=== PATIENT | male | born 1955 | race Caucasian/White ===

== ENCOUNTER 2019-11-18 18:59 | Emergency (ER) | payer MEDICAID ==
[~2019-11-18] VITALS: Ht 170.2 cm; Wt 99.8 kg
--- NOTE | 2019-11-18 19:28 | NUR ---
Patient out of unit for ct scan via wheelchair.
[2019-11-18] MEDS ORDERED: ONDANSETRON 4 MG/2 ML VIAL ONE (19:30)
[2019-11-18] MEDS ORDERED: ONDANSETRON 4 MG/2 ML VIAL IV ONE (19:30)
[2019-11-18] MEDS ORDERED: KETOROLAC TROMETHAMINE 30 MG INJ ONE (19:30)
[2019-11-18] MEDS ORDERED: KETOROLAC TROMETHAMINE 30 MG INJ IVP ONE (19:30)
[2019-11-18 19:41] LABS: BASOPHILS # (AUTO) 0.1 K/uL (0.0-8.0); BASOPHILS % (AUTO) 0.7 % (0.0-2.0); EOSINOPHILS # (AUTO) 0.1 K/uL (0.0-0.7); EOSINOPHILS % (AUTO) 0.8 % (0.0-7.0); HEMATOCRIT 44.4 % (36.7-47.1); HEMOGLOBIN 14.6 g/dL (12.5-16.3); LYMPHOCYTES # (AUTO) 3.7 K/uL (20.0-40.0); LYMPHOCYTES % (AUTO) 22.3 % (20.5-51.5); MEAN CORPUSCULAR HEMOGLOBIN 30.3 uug (23.8-33.4); MEAN CORPUSCULAR HGB CONC 33 g/dL (32.5-36.3); MEAN CORPUSCULAR VOLUME 92.3 fL (73.0-96.2); MONOCYTES # (AUTO) 1.6 K/uL (2.0-10.0); MONOCYTES % (AUTO) 9.4 % (0.0-11.0); NEUTROPHILS # (AUTO) 11.2 K/uL (1.8-8.9); NEUTROPHILS % (AUTO) 66.8 % (38.5-71.5); PLATELET COUNT (AUTO) 281 K/uL (152-348); RED BLOOD CELL COUNT(AUTO) 4.81 MIL/uL (4.06-5.63); WHITE BLOOD COUNT (AUTO) 16.8 K/uL (3.6-10.2)
[2019-11-18 19:44] LABS: *BILIRUBIN,URIN NEGATIVE (NEGATIVE); *BLOOD, URINE 2+ (NEGATIVE); *CLARITY,URINE CLOUDY (CLEAR); *COLOR,URINE YELLOW (YELLOW); *KETONES,URINE NEGATIVE (NEGATIVE); *UROBILINOGEN,URINE 0.2 E.U./dl (NORMAL); LEUKOCYTE ESTERASE ,URINE 1+ (NEGATIVE); NITRITE, URINE NEGATIVE (NEGATIVE); UGLUCOSE NEGATIVE (NEGATIVE)
[2019-11-18 19:50] LABS: POTASSIUM 3.5 mmol/L (3.5-5.1)
[2019-11-18 19:56] LABS: BILIRUBIN,DIRECT 0.2 mg/dL (0.0-0.2); BILIRUBIN,TOTAL 0.8 mg/dL (0.2-1.0); TOTAL PROTEIN, SERUM 6.7 g/dL (6.4-8.2)
[2019-11-18 19:56] LABS: BACTERIA,URINE MANY /HPF (NONE SEEN); SQUAMOUS EPITHELIAL CELL,UR FEW /HPF (NONE SEEN); WBC,URINE 50-80 /HPF (0-3)
[2019-11-18] MEDS ORDERED: CEFTRIAXONE 1 G in IV DEXTROSE 5% 50 ML IV ONE (20:15)
[2019-11-18] MEDS ORDERED: CEFTRIAXONE 1 G VIAL ONE (20:23)
--- NOTE | 2019-11-18 23:09 | NUR ---
IV removed. Catheter intact and site benign. Pressure and 4x4 gauze applied to site. No bleeding noted.
[2019-11-18 23:12] VITALS: BP 130/60
== END 2019-11-18 23:21 | disposition home or self-care (01) ==
LOC: ER 18:59
DX: N39.0 Urinary tract infection, site not specified (principal); Z90.49 Acquired absence of other specified parts of digestive tract
CPT/HCPCS: 36415; 74176; 80048; 80076; 81000; 81001; 83690; 85025; 87077; 87086; 87186; 93005; 96365; 96375; 99284; J0696; J1885; J2405; J7060; A4663

== ENCOUNTER 2021-04-18 21:38 | Emergency (ER) | payer MEDICAID ==
[~2021-04-18] VITALS: Ht 170.2 cm; Wt 108.9 kg
--- NOTE | 2021-04-18 21:42 | NUR ---
Dr. Marley at bedside to examine pts. eye.
[2021-04-18] MEDS ORDERED: FLUORESCEIN SODIUM 1 MG STRIP ONE (21:51)
[2021-04-18] MEDS ORDERED: FLUORESCEIN SODIUM 1 MG STRIP OP ONE (22:00)
[2021-04-18] MEDS ORDERED: SULFACETAMIDE SOD 10% OPHT DR 15 ML BOTTLE OP ONE (22:00)
--- NOTE | 2021-04-18 22:05 | NUR ---
Eye patch applied to pt. to wear until pt. can get follow up care for his eye per md Marley. Pt. instructed to not drive.
[2021-04-18] MEDS ORDERED: SULFACETAMIDE SOD 10% OPHT DR 15 ML BOTTLE ONE (22:09)
--- NOTE | 2021-04-18 22:10 | NUR ---
Patient discharged to home in stable condition. Written and verbal after care instructions given. Patient verbalizes understanding of instructions. Stressed follow up or return to ER for worsening s/s. Pt. instructed not to drive. Pt. walked with steady gait. All belongings with pt.
[2021-04-18 22:11] VITALS: BP 121/67
== END 2021-04-18 22:15 | disposition home or self-care (01) ==
LOC: ER 21:41
DX: S05.01XA Injury of conjunctiva and corneal abrasion without foreign body, right eye, initial encounter (principal); X58.XXXA Exposure to other specified factors, initial encounter; Y92.89 Other specified places as the place of occurrence of the external cause
CPT/HCPCS: A4663

== ENCOUNTER 2023-02-17 18:28 | Inpatient (IN) | payer MEDICAID ==
[~2023-02-17] VITALS: Ht 170.2 cm; Wt 99.8 kg
[2023-02-17] MEDS ORDERED: VANCOMYCIN 1G/D5W 200 ML PIGGYBACK IV ONE (19:30)
[2023-02-17 19:44] LABS: HEMATOCRIT 40.5 % (36.7-47.1); MEAN CORPUSCULAR HEMOGLOBIN 30.4 uug (23.8-33.4); MEAN CORPUSCULAR VOLUME 91.3 fL (73.0-96.2); PLATELET COUNT (AUTO) 404 K/uL (152-348)
[2023-02-17] MEDS ORDERED: VANCOMYCIN IV 200 ML ONE (19:53)
[2023-02-17 20:04] LABS: CARBON DIOXIDE 28 mmol/L (21-32); CHLORIDE 104 mmol/L (98-107); GLUCOSE 135 mg/dL (74-106); POTASSIUM 4.1 mmol/L (3.5-5.1); UREA NITROGEN, BLOOD 19 mg/dL (7-18)
[2023-02-17 20:17] LABS: ALANINE AMINOTRANSFERASE 13 U/L (16-63); ALKALINE PHOSPHATASE 101 U/L (50-136); ASPARTATE AMINOTRANSFERASE 5 U/L (15-37); BILIRUBIN,DIRECT 0.1 mg/dL (0.0-0.2); BILIRUBIN,TOTAL 0.3 mg/dL (0.2-1.0); TOTAL PROTEIN, SERUM 6.3 g/dL (6.4-8.2)
[2023-02-17 23:23] VITALS: BP 117/72
[2023-02-18 04:31] VITALS: BP 118/70
[2023-02-18] MEDS ORDERED: MAGNESIUM HYDROXIDE 30 ML LIQUID UDC PO PRN (08:30)
[2023-02-18] MEDS ORDERED: ONDANSETRON 4 MG/2 ML VIAL IV PRN (08:30)
[2023-02-18] MEDS ORDERED: REMEDY ESSENTIAL ZINC PASTE 113 GM TP PRN (08:30)
[2023-02-18] MEDS ORDERED: ACETAMINOPHEN 325 MG TABLET PO PRN (08:30)
[2023-02-18] MEDS ORDERED: HYDROCODONE/APAP 5-325MG TABLET PO PRN (08:30)
[2023-02-18 09:05] LABS: HEMATOCRIT 42.7 % (36.7-47.1); MEAN CORPUSCULAR HEMOGLOBIN 30.7 uug (23.8-33.4); MEAN CORPUSCULAR VOLUME 92.2 fL (73.0-96.2); PLATELET COUNT (AUTO) 381 K/uL (152-348)
[2023-02-18 09:32] LABS: BILIRUBIN,TOTAL 0.5 mg/dL (0.2-1.0); CREATININE 0.9 mg/dL (0.6-1.3); MAGNESIUM 1.9 mg/dL (1.8-2.4); TOTAL PROTEIN, SERUM 6.3 g/dL (6.4-8.2)
[2023-02-18] MEDS: VANCOMYCIN IV 1,500 MG in IV DEXTROSE 5% 500 ML IV SCH (09:53)
[2023-02-18 11:41] VITALS: BP 127/65
[2023-02-18] MEDS: THERAHONEY GEL 1.5 OZ TUBE TOP SCH (14:52)
[2023-02-18 15:09] VITALS: BP 115/57
[2023-02-18 20:00] VITALS: BP 112/60
[2023-02-18 22:00] VITALS: BP 112/60
[2023-02-19 04:00] VITALS: BP 101/62
[2023-02-19] MEDS: PANTOPRAZOLE SODIUM 40 MG TABLET.DR PO SCH (06:36)
[2023-02-19 06:42] LABS: HEMATOCRIT 43.7 % (36.7-47.1); MEAN CORPUSCULAR HEMOGLOBIN 30.9 uug (23.8-33.4); MEAN CORPUSCULAR VOLUME 91.5 fL (73.0-96.2); PLATELET COUNT (AUTO) 393 K/uL (152-348)
[2023-02-19 07:24] LABS: MAGNESIUM 1.9 mg/dL (1.8-2.4); PHOSPHOROUS 2.8 mg/dL (2.5-4.9); POTASSIUM 4.3 mmol/L (3.5-5.1)
[2023-02-19 07:52] VITALS: BP 121/74
[2023-02-19] MEDS: THERAHONEY GEL 1.5 OZ TUBE TOP SCH (08:39)
[2023-02-19 11:47] VITALS: BP 118/64
[2023-02-19] MEDS: VANCOMYCIN IV 1,500 MG in IV DEXTROSE 5% 500 ML IV SCH ×3 (14:57)
[2023-02-19 16:23] VITALS: BP 116/71
[2023-02-19 20:05] VITALS: BP 111/63
[2023-02-20 04:00] VITALS: BP 103/65
[2023-02-20] MEDS: VANCOMYCIN IV 1,500 MG in IV DEXTROSE 5% 500 ML IV SCH (05:05)
[2023-02-20 05:18] LABS: MEAN CORPUSCULAR HEMOGLOBIN 31.3 uug (23.8-33.4); MEAN CORPUSCULAR VOLUME 91.4 fL (73.0-96.2); PLATELET COUNT (AUTO) 377 K/uL (152-348)
[2023-02-20 05:34] LABS: MAGNESIUM 1.9 mg/dL (1.8-2.4); PHOSPHOROUS 2.5 mg/dL (2.5-4.9); POTASSIUM 4.4 mmol/L (3.5-5.1)
[2023-02-20] MEDS: PANTOPRAZOLE SODIUM 40 MG TABLET.DR PO SCH (06:07)
[2023-02-20] MEDS: THERAHONEY GEL 1.5 OZ TUBE TOP SCH (08:21)
[2023-02-20] MEDS ORDERED: CEPH500T PO (11:25)
[2023-02-20 11:44] VITALS: BP 123/78
== END 2023-02-20 12:50 | disposition home or self-care (01) | DRG 720 ==
LOC: ER 18:28 → MEDSURG3 21:43
PROVIDERS: ADMIT Nurse Practitioner Family; ATTEND Nurse Practitioner Family
DX: A41.9 Sepsis, unspecified organism (principal); D69.6 Thrombocytopenia, unspecified; E44.1 Mild protein-calorie malnutrition; L97.318 Non-pressure chronic ulcer of right ankle with other specified severity; I87.333 Chronic venous hypertension (idiopathic) with ulcer and inflammation of bilateral lower extremity; E88.09 Other disorders of plasma-protein metabolism, not elsewhere classified; L03.115 Cellulitis of right lower limb; L03.116 Cellulitis of left lower limb; L97.828 Non-pressure chronic ulcer of other part of left lower leg with other specified severity; D75.838 Other thrombocytosis; F17.210 Nicotine dependence, cigarettes, uncomplicated; Z59.01 Sheltered homelessness; R60.0 Localized edema; Z90.49 Acquired absence of other specified parts of digestive tract; Z87.81 Personal history of (healed) traumatic fracture; Z87.440 Personal history of urinary (tract) infections; S31.109D Unspecified open wound of abdominal wall, unspecified quadrant without penetration into peritoneal cavity, subsequent encounter; X58.XXXD Exposure to other specified factors, subsequent encounter; R79.89 Other specified abnormal findings of blood chemistry; B95.0 Streptococcus, group A, as the cause of diseases classified elsewhere
CPT/HCPCS: 36415; 71045; 83735; 84100; 84484; 85025; 85651; 86140; 86803; 87040; 87806; 93005; A4663; A6209; A6213; G0378; J3370; J7040; J7060

== ENCOUNTER 2024-09-02 23:18 | Emergency (ER) | payer MEDICAID, OTHER ==
[~2024-09-02] VITALS: Ht 170.2 cm; Wt 90.7 kg
[~2024-09-02 23:18] MED LIST: CEPH500T PO
[2024-09-02] MEDS ORDERED: LIDOCAINE 1%-EPI 1:100,000 20 ML VIAL ONE ×2 (23:39→23:45)
[2024-09-02] MEDS ORDERED: SODIUM BICARBONATE 4.2 % (NEUT) 5 ML VIAL ONE (23:44)
[2024-09-02] MEDS ORDERED: ONDANSETRON ODT 4 MG TAB.RAPDIS ONE (23:50)
[2024-09-02] MEDS ORDERED: HYDROCODONE/APAP 10-325 MG TABLET ONE (23:50)
[2024-09-02] MEDS: HYDROCODONE/APAP 10-325 MG TABLET PO ONE (23:56)
[2024-09-02] MEDS: ONDANSETRON ODT 4 MG TAB.RAPDIS SL ONE (23:56)
[2024-09-02] MEDS: SODIUM BICARBONATE 4.2 % (NEUT) 5 ML VIAL TP ONE (23:57)
[2024-09-02] MEDS: LIDOCAINE 1%-EPI 1:100,000 20 ML VIAL IJ ONE (23:57)
[2024-09-03] MEDS ORDERED: HYDR-3980 PO (00:22)
[2024-09-03] MEDS ORDERED: ONDA4TAB11 PO (00:22)
[2024-09-03] MEDS ORDERED: CEPH500T PO (00:22)
[2024-09-03] MEDS ORDERED: LIDOCAINE HCL 1% 20 ML VIAL ONE (00:36)
[2024-09-03] MEDS ORDERED: CEFTRIAXONE 1 G VIAL ONE (00:36)
[2024-09-03] MEDS: CEFTRIAXONE 1 G VIAL IM ONE (00:40)
[2024-09-03 01:22] VITALS: BP 145/84; TEMP 97.8; O2SAT 98
== END 2024-09-03 00:57 | disposition home or self-care (01) ==
LOC: ER 23:25
DX: S61.011A Laceration without foreign body of right thumb without damage to nail, initial encounter (principal); Z90.49 Acquired absence of other specified parts of digestive tract; Z79.899 Other long term (current) drug therapy; W01.0XXA Fall on same level from slipping, tripping and stumbling without subsequent striking against object, initial encounter; Y93.89 Activity, other specified; Y92.89 Other specified places as the place of occurrence of the external cause; Y99.8 Other external cause status
CPT/HCPCS: 99283; 12001; 73130; 96372; J3490 ×3; J0696; A4606; A4663; Q0162